=== PATIENT | male | born 1955 | race Caucasian/White ===

== ENCOUNTER 2022-12-31 01:52 | Emergency (ER) | payer OTHER ==
[~2022-12-31] VITALS: Ht 167.6 cm; Wt 70.5 kg
[2022-12-31] MEDS ORDERED: CARB1TAB42 PO (02:20)
[2022-12-31 03:04] LABS: BASOPHILS % (AUTO) 0.9 % (0.0-2.0); EOSINOPHILS % (AUTO) 2.6 % (1.0-6.0); HEMATOCRIT 40.4 % (41-53); HEMOGLOBIN 13.3 g/dL (13.5-17.5); LYMPHOCYTES # (AUTO) 1.6 K/uL (1.0-4.8); LYMPHOCYTES % (AUTO) 16.6 % (22.0-44.0); MEAN CORPUSCULAR HEMOGLOBIN 31.2 pg (26.0-34.0); MEAN CORPUSCULAR HGB CONC 32.9 G/dL (31.0-37.0); MEAN CORPUSCULAR VOLUME 95 fL (80-100); MONOCYTES # (AUTO) 1.1 K/uL (0.1-1.0); MONOCYTES % (AUTO) 11.7 % (2.0-9.0); NEUTROPHILS # (AUTO) 6.5 K/uL (1.8-7.7); NEUTROPHILS % (AUTO) 68.2 % (40.0-70.0); PLATELET COUNT (AUTO) 233 K/uL (150-450); RED BLOOD CELL COUNT(AUTO) 4.26 MIL/uL (4.50-5.90); RED CELL DISTRIBUTION WIDTH 13.2 % (11.5-14.5)
[2022-12-31 03:09] LABS: ANION GAP 8 mmol/L (8-16); CALCIUM, TOTAL 9.2 mg/dL (8.8-10.5); CARBON DIOXIDE 26 mmol/L (22-29); CHLORIDE 105 mmol/L (98-107); CREATININE 1.19 mg/dL (0.60-1.30); GLOMERULAR FILTR. RATE CALC > 60 mL/min (>60); GLUCOSE,RANDOM 135 mg/dL (70-110); POTASSIUM 4.3 mmol/L (3.5-5.1); SODIUM SERUM 139 mmol/L (136-145)
[2022-12-31 03:34] LABS: ALANINE AMINOTRANSFERASE 23 U/L (12-78); ALBUMIN 4.2 g/dL (3.4-5.0); ALKALINE PHOSPHATASE 77 U/L (46-116); ASPARTATE AMINOTRANSFERASE 39 U/L (15-37); BILIRUBIN,TOTAL 0.6 mg/dL (0.1-1.0); CREATINE KINASE, TOTAL ONLY 452 U/L (39-308); TOTAL PROTEIN, SERUM 7.5 g/dL (6.4-8.2)
[2022-12-31 07:15] VITALS: BP 130/73
== END 2022-12-31 07:51 | disposition home or self-care (01) ==
LOC: EMS 02:03
DX: R53.1 Weakness (principal); M60.9 Myositis, unspecified; G20 Parkinson's disease; R45.851 Suicidal ideations; I10 Essential (primary) hypertension; F17.210 Nicotine dependence, cigarettes, uncomplicated
CPT/HCPCS: 99284; 80053; 82550; 84484; 85025; 93005; G0480

== ENCOUNTER 2024-10-03 13:39 | Inpatient (IN) | payer MEDICARE, MEDICAID ==
[~2024-10-03] VITALS: Ht 177.8 cm; Wt 66.0 kg
[~2024-10-03 13:39] MED LIST: CARB1TAB42 PO
[2024-10-03 15:12] LABS: BASOPHILS % (AUTO) 0.7 % (0.0-2.0); EOSINOPHILS % (AUTO) 2.5 % (1.0-6.0); HEMATOCRIT 37.9 % (41-53); HEMOGLOBIN 12.8 g/dL (13.5-17.5); LYMPHOCYTES # (AUTO) 1.3 K/uL (1.0-4.8); LYMPHOCYTES % (AUTO) 15.1 % (22.0-44.0); MEAN CORPUSCULAR HEMOGLOBIN 32.1 pg (26.0-34.0); MEAN CORPUSCULAR HGB CONC 33.7 G/dL (31.0-37.0); MEAN CORPUSCULAR VOLUME 95 fL (80-100); MONOCYTES % (AUTO) 11.8 % (2.0-9.0); NEUTROPHILS # (AUTO) 6.1 K/uL (1.8-7.7); NEUTROPHILS % (AUTO) 69.9 % (40.0-70.0); PLATELET COUNT (AUTO) 231 K/uL (150-450); RED BLOOD CELL COUNT(AUTO) 3.98 MIL/uL (4.50-5.90); RED CELL DISTRIBUTION WIDTH 13.1 % (11.5-14.5); WHITE BLOOD COUNT (AUTO) 8.8 K/uL (4.5-11.0)
[2024-10-03 15:22] LABS: ANION GAP 12 mmol/L (8-16); CALCIUM, TOTAL 9.2 mg/dL (8.8-10.5); CARBON DIOXIDE 22 mmol/L (22-29); CHLORIDE 104 mmol/L (98-107); CREATININE 1.08 mg/dL (0.60-1.30); GLOMERULAR FILTR. RATE CALC > 60 mL/min (>60); GLUCOSE,RANDOM 120 mg/dL (70-110); POTASSIUM 3.6 mmol/L (3.5-5.1); SODIUM SERUM 138 mmol/L (136-145); UREA NITROGEN, BLOOD 31 mg/dL (7-18)
[2024-10-03] MEDS: DiphenhydrAMINE HCL 25 MG CAPSULE PO ONE (15:30)
[2024-10-03] MEDS: HALOPERIDOL 5 MG TABLET PO ONE (15:31)
[2024-10-03] MEDS: LORazepam 1 MG TABLET PO ONE (15:31)
[2024-10-03 15:36] LABS: ALCOHOL, BLOOD (SERUM) < 3 mg/dL (0-10)
[2024-10-03] MEDS: HALOPERIDOL LACTATE 5 MG/ML VIAL IM ONE (15:48)
[2024-10-03] MEDS: LORazepam 2 MG/ML VIAL IM ONE (15:48)
[2024-10-03] MEDS: DiphenhydrAMINE HCL 50 MG/ML VIAL IM ONE (15:48)
[2024-10-03] MEDS ORDERED: QUEtiapine FUMARATE 100 MG TABLET PO PRN (16:00)
[2024-10-03] MEDS ORDERED: ZOLPIDEM TARTRATE 10 MG TABLET PO PRN (16:00)
[2024-10-03] MEDS ORDERED: LORazepam 2 MG TABLET PO PRN (16:00)
[2024-10-03] MEDS ORDERED: ACET650S14 PR (18:47)
[2024-10-03] MEDS ORDERED: ASPI-1450 PO (18:47)
[2024-10-03] MEDS ORDERED: DIVA125T32 PO (18:47)
[2024-10-03 19:30] LABS: COVID AG,FIA SOURCE NASAL SWAB
[2024-10-03 19:52] LABS: SARS-COV2 (COVID) ANTIGEN,FIA Negative (Negative)
[2024-10-03 20:30] VITALS: BP 152/72; PULSE 71; RESP 18; TEMP 98.2; O2SAT 98
[2024-10-04 03:23] VITALS: BP 152/72; PULSE 71; RESP 18; TEMP 98.2; O2SAT 98
[2024-10-04 08:36] LABS: HEMOGLOBIN A1C 5.5 % (3.8-5.6)
[2024-10-04 08:49] LABS: CHOL/HDL RATIO 2.2 (4.2-7.3)
[2024-10-04] MEDS: AmLODIPine BESYLATE 10 MG TABLET PO SCH (08:57)
[2024-10-04] MEDS: LISINOPRIL 20 MG TABLET PO SCH (08:57)
[2024-10-04] MEDS: CARBIDOPA/LEVODOPA 25-100 MG TABLET PO SCH (08:58)
[2024-10-04] MEDS: ASPIRIN 81 MG CHEWABLE TABLET PO SCH (08:58)
[2024-10-04] MEDS: CARBIDOPA/LEVODOPA 50-200 MG ER TABLET PO SCH (09:01)
[2024-10-04 09:13] VITALS: BP 160/83; PULSE 66; RESP 17; TEMP 97.8; O2SAT 100
[2024-10-04 11:06] LABS: APPEARANCE,URINE CLEAR (CLEAR); BILIRUBIN,URINE NEGATIVE (NEGATIVE); COLOR,URINE YELLOW (YELLOW); GLUCOSE, URINE (UA) NEGATIVE (NEGATIVE); KETONES,URINE TRACE mg/dL (NEGATIVE); LEUKOCYTE ESTERASE ,URINE NEGATIVE (NEGATIVE); NITRATE,URINE NEGATIVE (NEGATIVE); OCCULT BLOOD,URINE SMALL (NEGATIVE); PROTEIN,URINE 30-70 mg/dL (NEGATIVE); SPECIFIC GRAVITIY, URINE 1.027 (1.003-1.030); UROBILINOGEN,URINE <=1.0 mg/dL (<=1.0)
[2024-10-04 11:07] LABS: ALCOHOL, URINE DRUG SCREEN NEGATIVE (NEGATIVE); AMPHET/METH SCREEN,URINE NEGATIVE (NEGATIVE); BARBITURATE SCREEN, URINE NEGATIVE (NEGATIVE); BENZODIAZEPINES SCREEN,URINE NEGATIVE (NEGATIVE); CANNABINOID SCREEN,URINE NEGATIVE (NEGATIVE); COCAINE SCREEN,URINE NEGATIVE (NEGATIVE); METHADONE SCREEN, URINE NEGATIVE (NEGATIVE); OPIATE SCREEN,URINE NEGATIVE (NEGATIVE); PHENCYCLIDINE SCREEN,URINE NEGATIVE (NEGATIVE)
[2024-10-04 11:18] LABS: BACTERIA,URINE None Seen /HPF (None Seen); HYALINE CASTS, URINE 0-2 /LPF (None Seen); WBC,URINE 0-2 /HPF (0-5)
[2024-10-04] MEDS ORDERED: AMLO10TA55 PO (12:05)
[2024-10-04] MEDS ORDERED: ACET-2247 PO (12:05)
[2024-10-04] MEDS ORDERED: LISI20TA24 PO (12:05)
[2024-10-04] MEDS: DIVALPROEX SODIUM 125 MG DR TABLET PO SCH (13:07)
[2024-10-04 20:17] VITALS: BP 150/79; PULSE 74; RESP 18; TEMP 97.3; O2SAT 98
[2024-10-05 08:30] VITALS: BP 153/71; PULSE 77; RESP 18; TEMP 97.2; O2SAT 98
[2024-10-05] MEDS: ETHYL ALCOHOL 62% ANTISEPTIC NASAL SANITIZER 0.6 ML AMPUL NASAL SCH (10:17)
[2024-10-05] MEDS: CARBIDOPA/LEVODOPA 50-200 MG ER TABLET PO ONE (18:46)
[2024-10-05 21:58] VITALS: BP 103/60; PULSE 82; RESP 16; TEMP 97.7; O2SAT 98
[2024-10-06 09:00] VITALS: BP 150/86; PULSE 80; RESP 16; TEMP 98; O2SAT 97
[2024-10-06 21:54] VITALS: BP 132/66; PULSE 76; RESP 18; TEMP 97.4; O2SAT 97
[2024-10-07 08:39] VITALS: BP 138/73; PULSE 81; RESP 19; TEMP 98; O2SAT 99
[2024-10-07 21:45] VITALS: BP 118/74; PULSE 71; RESP 18; TEMP 98; O2SAT 99
[2024-10-07] MEDS: GuaiFENesin/D-METHORPHAN/PHENYLEPH 5 ML LIQUID ORAL.SYG PO PRN (23:02)
[2024-10-08] MEDS: LORATADINE 10 MG TABLET PO SCH (09:11)
[2024-10-08 09:30] LABS: APPEARANCE,URINE TURBID (CLEAR); BILIRUBIN,URINE NEGATIVE (NEGATIVE); GLUCOSE, URINE (UA) NEGATIVE (NEGATIVE); KETONES,URINE TRACE mg/dL (NEGATIVE); LEUKOCYTE ESTERASE ,URINE LARGE (NEGATIVE); NITRATE,URINE NEGATIVE (NEGATIVE); OCCULT BLOOD,URINE LARGE (NEGATIVE); PH,URINE 5.5 (5.0-8.0); PROTEIN,URINE 100-200,SEE CONFIRM mg/dL (NEGATIVE); SPECIFIC GRAVITIY, URINE 1.022 (1.003-1.030); UROBILINOGEN,URINE <=1.0 mg/dL (<=1.0)
[2024-10-08 09:59] LABS: COLOR,URINE LIGHT BROWN (YELLOW)
[2024-10-08 10:17] LABS: SULFOSALICYLIC ACID,URINE 2+ (Negative)
[2024-10-08 10:18] LABS: BACTERIA,URINE Many /HPF (None Seen); RBC,URINE >100 /HPF (0-2); WBC,URINE 51-100 /HPF (0-5)
[2024-10-08 11:39] VITALS: BP 148/66; PULSE 73; RESP 18; TEMP 98.8; O2SAT 99
[2024-10-08] MEDS: CEPHALEXIN MONOHYDRATE 500 MG CAPSULE PO SCH (12:43)
[2024-10-08 20:57] VITALS: BP 128/63; PULSE 95; RESP 18; TEMP 98.3; O2SAT 97
[2024-10-09 11:09] VITALS: BP 123/81; PULSE 95; RESP 18; TEMP 98.5; O2SAT 98
[2024-10-09 20:28] VITALS: RESP 18; TEMP 98.8
[2024-10-10 08:54] VITALS: RESP 18
[2024-10-10] MEDS: NITROFURANTOIN MACROCRYSTAL 100 MG CAPSULE PO SCH (11:48)
[2024-10-10] MEDS ORDERED: CARB1TAB36 PO (11:51)
[2024-10-10] MEDS ORDERED: ETHY1MED2 NASAL (11:51)
[2024-10-10] MEDS ORDERED: CEPH-558 PO (11:51)
[2024-10-10] MEDS ORDERED: LORA10TA7 PO (11:52)
[2024-10-10] MEDS ORDERED: NITR-166 PO (11:52)
== END 2024-10-10 16:19 | DRG 885 ==
LOC: EMS 13:53 → 3EI 20:43
PROVIDERS: ADMIT Psychiatry & Neurology Psychiatry; ATTEND Psychiatry & Neurology Psychiatry
PROC: GZHZZZZ Group Psychotherapy (ICD-10-PCS; principal; 2024-10-04)
PROC: GZ51ZZZ Individual Psychotherapy, Behavioral (ICD-10-PCS; 2024-10-04)
DX: F29 Unspecified psychosis not due to a substance or known physiological condition (principal); G20.A1 Parkinson's disease without dyskinesia, without mention of fluctuations; I10 Essential (primary) hypertension; D64.9 Anemia, unspecified; Z20.822 Contact with and (suspected) exposure to COVID-19; F41.9 Anxiety disorder, unspecified; R73.9 Hyperglycemia, unspecified; F02.80 Dementia in other diseases classified elsewhere, unspecified severity, without behavioral disturbance, psychotic disturbance, mood disturbance, and anxiety; Z79.899 Other long term (current) drug therapy; Z87.891 Personal history of nicotine dependence
CPT/HCPCS: 80048; 80061; 80164; 80307; 81001; 81002; 83036; 85025; 87077; 87081; 87086; 87186; 96372; 99291; G0480; J1200; J1630; J2060

== ENCOUNTER 2024-10-16 18:25 | Inpatient (IN) | payer MEDICARE, MEDICAID ==
[~2024-10-16] VITALS: Ht 154.9 cm; Wt 67.3 kg
[~2024-10-16 18:25] MED LIST changes: +AMLO10TA55 PO; +ASPI-1450 PO; +CARB1TAB36 PO; +CEPH-558 PO; +DIVA125T32 PO; +ETHY1MED2 NASAL; +LISI20TA24 PO; +LORA10TA7 PO; +NITR-166 PO
[2024-10-16] MEDS ORDERED: 0.9% SODIUM CHLORIDE 10 ML SYRINGE IVP PRN (18:45)
[2024-10-16] MEDS: LORazepam 2 MG/ML VIAL IM ONE (18:48)
[2024-10-16] MEDS: HALOPERIDOL LACTATE 5 MG/ML VIAL IM ONE (18:49)
[2024-10-16] MEDS: DiphenhydrAMINE HCL 50 MG/ML VIAL IM ONE (18:49)
[2024-10-16] MEDS: SODIUM CHLORIDE 0.9% 1,800 ML IV ONE (19:09)
[2024-10-16 19:23] LABS: COVID AG,FIA SOURCE NASAL SWAB; EOSINOPHILS % (AUTO) 1.8 % (1.0-6.0); HEMOGLOBIN 10.8 g/dL (13.5-17.5); LYMPHOCYTES # (AUTO) 0.9 K/uL (1.0-4.8); LYMPHOCYTES % (AUTO) 14.8 % (22.0-44.0); MEAN CORPUSCULAR HEMOGLOBIN 32.2 pg (26.0-34.0); MEAN CORPUSCULAR HGB CONC 33.7 G/dL (31.0-37.0); MEAN CORPUSCULAR VOLUME 96 fL (80-100); MONOCYTES % (AUTO) 16.9 % (2.0-9.0); NEUTROPHILS % (AUTO) 65.5 % (40.0-70.0); PLATELET COUNT (AUTO) 234 K/uL (150-450); RED BLOOD CELL COUNT(AUTO) 3.35 MIL/uL (4.50-5.90); RED CELL DISTRIBUTION WIDTH 12.7 % (11.5-14.5); WHITE BLOOD COUNT (AUTO) 6.1 K/uL (4.5-11.0)
[2024-10-16 19:26] LABS: APPEARANCE,URINE CLEAR (CLEAR); BILIRUBIN,URINE NEGATIVE (NEGATIVE); COLOR,URINE YELLOW (YELLOW); GLUCOSE, URINE (UA) NEGATIVE (NEGATIVE); LEUKOCYTE ESTERASE ,URINE NEGATIVE (NEGATIVE); NITRATE,URINE NEGATIVE (NEGATIVE); OCCULT BLOOD,URINE MODERATE (NEGATIVE); PH,URINE 5.5 (5.0-8.0); PH,URINE DRUG SCREEN 5.5 (5.0-8.0); PROTEIN,URINE 30-70 mg/dL (NEGATIVE); SPECIFIC GRAVITIY, URINE 1.022 (1.003-1.030); UROBILINOGEN,URINE <=1.0 mg/dL (<=1.0)
[2024-10-16 19:33] LABS: ALCOHOL, URINE DRUG SCREEN NEGATIVE (NEGATIVE); AMPHET/METH SCREEN,URINE NEGATIVE (NEGATIVE); BARBITURATE SCREEN, URINE NEGATIVE (NEGATIVE); BENZODIAZEPINES SCREEN,URINE NEGATIVE (NEGATIVE); CANNABINOID SCREEN,URINE NEGATIVE (NEGATIVE); COCAINE SCREEN,URINE NEGATIVE (NEGATIVE); METHADONE SCREEN, URINE NEGATIVE (NEGATIVE); OPIATE SCREEN,URINE NEGATIVE (NEGATIVE); PHENCYCLIDINE SCREEN,URINE NEGATIVE (NEGATIVE)
[2024-10-16 19:34] LABS: ANION GAP 16 mmol/L (8-16); CALCIUM, TOTAL 8.3 mg/dL (8.8-10.5); CARBON DIOXIDE 20 mmol/L (22-29); CHLORIDE 106 mmol/L (98-107); CREATININE 1.03 mg/dL (0.60-1.30); GLOMERULAR FILTR. RATE CALC > 60 mL/min (>60); GLUCOSE,RANDOM 100 mg/dL (70-110); POTASSIUM 3.8 mmol/L (3.5-5.1); SODIUM SERUM 142 mmol/L (136-145); UREA NITROGEN, BLOOD 27 mg/dL (7-18)
[2024-10-16 19:39] LABS: ALBUMIN 2.9 g/dL (3.4-5.0); BILIRUBIN,DIRECT 0.2 mg/dL (0.00-0.20); BILIRUBIN,TOTAL 0.7 mg/dL (0.1-1.0); TOTAL PROTEIN, SERUM 6.5 g/dL (6.4-8.2)
[2024-10-16 19:40] LABS: B-TYPE NATRIURETIC PEPTIDE 124 pg/mL (0-100)
[2024-10-16 19:41] LABS: ALCOHOL, BLOOD (SERUM) < 3 mg/dL (0-10)
[2024-10-16 19:43] LABS: INFLUENZA TYPE A NEGATIVE FOR TYPE A (NEGATIVE); INFLUENZA TYPE B NEGATIVE FOR TYPE B (NEGATIVE); SARS-COV2 (COVID) ANTIGEN,FIA Negative (Negative); TROPONIN I-HIGH SENSITIVITY 9 ng/L (<76)
[2024-10-16 19:44] LABS: LACTIC ACID 5.7 mmol/L (0.4-2.0)
[2024-10-16 19:53] LABS: BACTERIA,URINE Rare /HPF (None Seen); SQUAMOUS EPITHELIAL CELL,UR Rare /LPF (None Seen); WBC,URINE 0-2 /HPF (0-5)
[2024-10-16] MEDS: ACETAMINOPHEN 1000 MG/ISO-OSM 100 ML IV ONE (19:57)
[2024-10-16] MEDS: CefTRIAXone 1 GM/DEXTROSE 50 ML IV ONE (20:13)
[2024-10-16] MEDS: AZITHROMYCIN 500 MG/NS 250 ML IV ONE (20:49)
[2024-10-16] MEDS ORDERED: ALBUTEROL SULFATE 2.5 MG/0.5 ML NEB SOLUTION NEB PRN (21:30)
[2024-10-16] MEDS ORDERED: ONDANSETRON HCL 4 MG/2 ML VIAL IVP PRN (21:30)
[2024-10-16] MEDS ORDERED: ACETAMINOPHEN 325 MG TABLET PO PRN (21:30)
[2024-10-16] MEDS ORDERED: IPRATROPIUM BROMIDE 0.5 MG/2.5 ML NEB SOLUTION NEB PRN (21:30)
[2024-10-16] MEDS: DEXTROSE 5%-LACTATED RINGERS 1,000 ML IV SCH (21:49)
[2024-10-17] VITALS (7 sets, daily range): BP systolic 132–153; BP diastolic 53–86; PULSE 69–87; RESP 17–20; TEMP 97.4–98; O2SAT 95–98
[2024-10-17] MEDS: HEPARIN SODIUM,PORCINE 5,000 UNITS/ML VIAL SQ SCH (01:09)
[2024-10-17] MEDS: DiphenhydrAMINE HCL 50 MG/ML VIAL IVP ONE (03:22)
[2024-10-17] MEDS: PIPERACILLIN/TAZO 3.375 GM/D5W 50 ML IV SCH (04:10)
[2024-10-17 06:41] LABS: EOSINOPHILS % (AUTO) 6.2 % (1.0-6.0); HEMATOCRIT 38.8 % (41-53); HEMOGLOBIN 12.9 g/dL (13.5-17.5); LYMPHOCYTES # (AUTO) 1.5 K/uL (1.0-4.8); LYMPHOCYTES % (AUTO) 19.2 % (22.0-44.0); MEAN CORPUSCULAR HEMOGLOBIN 31.9 pg (26.0-34.0); MEAN CORPUSCULAR HGB CONC 33.3 G/dL (31.0-37.0); MEAN CORPUSCULAR VOLUME 96 fL (80-100); MONOCYTES # (AUTO) 1.5 K/uL (0.1-1.0); MONOCYTES % (AUTO) 19.4 % (2.0-9.0); NEUTROPHILS # (AUTO) 4.1 K/uL (1.8-7.7); NEUTROPHILS % (AUTO) 54.2 % (40.0-70.0); PLATELET COUNT (AUTO) 256 K/uL (150-450); RED BLOOD CELL COUNT(AUTO) 4.05 MIL/uL (4.50-5.90); WHITE BLOOD COUNT (AUTO) 7.6 K/uL (4.5-11.0)
[2024-10-17 07:04] LABS: ANION GAP 10 mmol/L (8-16); CALCIUM, TOTAL 8.4 mg/dL (8.8-10.5); CARBON DIOXIDE 24 mmol/L (22-29); CHLORIDE 108 mmol/L (98-107); CREATININE 0.61 mg/dL (0.60-1.30); GLOMERULAR FILTR. RATE CALC > 60 mL/min (>60); GLUCOSE,RANDOM 78 mg/dL (70-110); POTASSIUM 4.1 mmol/L (3.5-5.1); SODIUM SERUM 142 mmol/L (136-145); UREA NITROGEN, BLOOD 16 mg/dL (7-18)
[2024-10-17] MEDS: DOCUSATE SODIUM 100 MG CAPSULE PO SCH (09:00)
[2024-10-18] VITALS (7 sets, daily range): BP systolic 123–171; BP diastolic 60–93; PULSE 69–84; RESP 18–20; TEMP 97.7–98; O2SAT 96–99
[2024-10-18] MEDS ORDERED: SODIUM CHLORIDE 0.9% 250 ML IV ONE (11:22)
[2024-10-18] MEDS: HydrALAZINE HCL 20 MG/ML VIAL IVP PRN (23:40)
[2024-10-19 04:14] VITALS: BP 142/78; PULSE 83; RESP 18; TEMP 97.6; O2SAT 99
[2024-10-19 07:54] VITALS: BP 135/63; PULSE 93; RESP 18; TEMP 98; O2SAT 96
[2024-10-19 11:35] VITALS: BP 134/60; PULSE 90; RESP 20; TEMP 97.6; O2SAT 99
[2024-10-19 16:14] VITALS: BP 141/58; PULSE 79; RESP 18; TEMP 98; O2SAT 99
[2024-10-19 19:17] VITALS: BP 127/75; PULSE 82; RESP 18; TEMP 97.8; O2SAT 98
[2024-10-19 23:10] VITALS: BP 122/63; PULSE 80; RESP 18; TEMP 97.7; O2SAT 98
[2024-10-20 03:18] VITALS: BP 142/74; PULSE 84; RESP 19; TEMP 98.3; O2SAT 99
[2024-10-20 07:43] VITALS: BP 137/73; PULSE 84; RESP 19; TEMP 98.3; O2SAT 99
[2024-10-20 11:22] VITALS: BP 144/86; PULSE 83; RESP 19; TEMP 98.3; O2SAT 98
[2024-10-20 15:34] VITALS: BP 125/77; PULSE 74; RESP 19; TEMP 98.2; O2SAT 98
[2024-10-20 18:44] LABS: BASOPHILS % (AUTO) 0.9 % (0.0-2.0); EOSINOPHILS % (AUTO) 5.5 % (1.0-6.0); HEMOGLOBIN 12.5 g/dL (13.5-17.5); LYMPHOCYTES # (AUTO) 1.5 K/uL (1.0-4.8); LYMPHOCYTES % (AUTO) 16.7 % (22.0-44.0); MEAN CORPUSCULAR HEMOGLOBIN 31.4 pg (26.0-34.0); MEAN CORPUSCULAR VOLUME 95 fL (80-100); MONOCYTES # (AUTO) 1.1 K/uL (0.1-1.0); NEUTROPHILS # (AUTO) 5.6 K/uL (1.8-7.7); NEUTROPHILS % (AUTO) 63.9 % (40.0-70.0); PLATELET COUNT (AUTO) 260 K/uL (150-450); RED BLOOD CELL COUNT(AUTO) 3.98 MIL/uL (4.50-5.90); RED CELL DISTRIBUTION WIDTH 13.2 % (11.5-14.5); WHITE BLOOD COUNT (AUTO) 8.7 K/uL (4.5-11.0)
[2024-10-20 18:57] LABS: ANION GAP 8 mmol/L (8-16); CALCIUM, TOTAL 8.1 mg/dL (8.8-10.5); CARBON DIOXIDE 28 mmol/L (22-29); CHLORIDE 104 mmol/L (98-107); CREATININE 0.83 mg/dL (0.60-1.30); GLOMERULAR FILTR. RATE CALC > 60 mL/min (>60); GLUCOSE,RANDOM 118 mg/dL (70-110); POTASSIUM 4.4 mmol/L (3.5-5.1); SODIUM SERUM 140 mmol/L (136-145); UREA NITROGEN, BLOOD 18 mg/dL (7-18)
[2024-10-20 19:01] LABS: ALANINE AMINOTRANSFERASE 42 U/L (12-78); ALBUMIN 2.6 g/dL (3.4-5.0); ALKALINE PHOSPHATASE 46 U/L (46-116); ASPARTATE AMINOTRANSFERASE 39 U/L (15-37); BILIRUBIN,TOTAL 0.3 mg/dL (0.1-1.0); TOTAL PROTEIN, SERUM 6.2 g/dL (6.4-8.2)
[2024-10-20] MEDS: PERMETHRIN 5% 60 GM CREAM TP ONE (21:00)
[2024-10-20 21:07] VITALS: BP 153/81; PULSE 83; RESP 19; O2SAT 97
[2024-10-21 00:18] VITALS: BP 149/66; PULSE 79; RESP 18; TEMP 98.1; O2SAT 98
[2024-10-21 04:33] VITALS: BP 144/74; PULSE 80; RESP 18; TEMP 97.9; O2SAT 99
[2024-10-21 07:21] VITALS: BP 168/90; PULSE 78; RESP 18; TEMP 98; O2SAT 98
[2024-10-21 11:11] VITALS: BP 151/86; PULSE 89; RESP 17; TEMP 98; O2SAT 98
[2024-10-21] MEDS: DIVALPROEX SODIUM 125 MG DR TABLET PO SCH (12:26)
[2024-10-21] MEDS: LISINOPRIL 20 MG TABLET PO SCH (12:26)
[2024-10-21] MEDS: AmLODIPine BESYLATE 10 MG TABLET PO SCH (12:26)
[2024-10-21] MEDS: CARBIDOPA/LEVODOPA 25-100 MG TABLET PO SCH (12:57)
[2024-10-21] MEDS: CARBIDOPA/LEVODOPA 50-200 MG ER TABLET PO SCH (12:57)
[2024-10-21 14:55] VITALS: BP 141/80; PULSE 94; RESP 18; TEMP 98.1; O2SAT 98
[2024-10-21 15:28] LABS: COVID AG,FIA SOURCE NASAL SWAB
[2024-10-21] MEDS ORDERED: CEPHALEXIN MONOHYDRATE 500 MG CAPSULE PO SCH (16:00)
[2024-10-21 16:11] LABS: SARS-COV2 (COVID) ANTIGEN,FIA Negative (Negative)
[2024-10-21 19:39] VITALS: BP 135/61; PULSE 81; RESP 18; TEMP 97.9; O2SAT 97
[2024-10-22] MEDS ORDERED: ASPIRIN 81 MG CHEWABLE TABLET PO SCH (09:00)
[2024-10-22] MEDS ORDERED: LORATADINE 10 MG TABLET PO SCH (09:00)
== END 2024-10-21 21:00 | DRG 871 ==
LOC: EMS 18:25 → EDH 21:17 → 5N 10-17 00:45
PROVIDERS: ADMIT Internal Medicine; ATTEND Internal Medicine
DX: A41.9 Sepsis, unspecified organism (principal); E43 Unspecified severe protein-calorie malnutrition; G93.41 Metabolic encephalopathy; J69.0 Pneumonitis due to inhalation of food and vomit; G20.A1 Parkinson's disease without dyskinesia, without mention of fluctuations; Z68.28 Body mass index [BMI] 28.0-28.9, adult; Z66 Do not resuscitate; Z20.822 Contact with and (suspected) exposure to COVID-19; I10 Essential (primary) hypertension
CPT/HCPCS: 71045; 80048; 80053; 80076; 80307; 81001; 83605; 83735; 83880; 84145; 84484; 85025; 87040; 87081; 87804; 92526; 92610; 93005; 96361; 96365; 96368; 96372; 99285; G0378; G0480; J0131; J0360; J0456; J0696; J1200; J1644; J2543; J7050; 36415-L1; 36415-TC

== ENCOUNTER 2024-10-21 15:23 | Inpatient (IN) | payer MEDICARE, MEDICAID ==
[~2024-10-21] VITALS: Ht 154.9 cm; Wt 63.7 kg
[2024-10-21] MEDS ORDERED: LORazepam 2 MG TABLET PO PRN (20:45)
[2024-10-21] MEDS ORDERED: ZOLPIDEM TARTRATE 10 MG TABLET PO PRN (20:45)
[2024-10-21] MEDS ORDERED: INFLUENZA VIRUS VACCINE TVS (6MO+) 2024-25/PF 45 MCG/0.5 ML SYRINGE IM. ONE (22:45)
[2024-10-21 23:38] VITALS: BP 134/84; PULSE 76; RESP 18; TEMP 97.8; O2SAT 97
[2024-10-22] MEDS ORDERED: CloNIDine HCL 0.1 MG TABLET PO PRN
[2024-10-22] MEDS ORDERED: DOCUSATE SODIUM 100 MG CAPSULE PO PRN
[2024-10-22] MEDS ORDERED: NICOTINE 14 MG/24 HOUR PATCH TD PRN
[2024-10-22] MEDS ORDERED: LOPERAMIDE HCL 2 MG CAPSULE PO PRN
[2024-10-22] MEDS ORDERED: ONDANSETRON 4 MG TABLET PO PRN
[2024-10-22] MEDS ORDERED: MAGNESIUM HYDROXIDE SUSPENSION 30 ML UDCUP PO PRN
[2024-10-22] MEDS ORDERED: PETROLATUM,WHITE 28 GM JELLY TP PRN
[2024-10-22] MEDS ORDERED: GuaiFENesin/D-METHORPHAN [SUGAR-FREE] 200-20MG/10 ML SYRUP UDCUP PO PRN
[2024-10-22] MEDS ORDERED: ALBUTEROL SULFATE HFA 90 MCG/PUFF 8 GM INHALER IH PRN
[2024-10-22] MEDS: DIVALPROEX SODIUM 125 MG DR TABLET PO SCH (08:41)
[2024-10-22] MEDS: ASPIRIN 81 MG CHEWABLE TABLET PO SCH (08:42)
[2024-10-22] MEDS: CARBIDOPA/LEVODOPA 50-200 MG ER TABLET PO SCH (08:42)
[2024-10-22] MEDS: LORATADINE 10 MG TABLET PO SCH (08:42)
[2024-10-22 09:00] VITALS: BP 126/68; PULSE 85; RESP 18; TEMP 97.8; O2SAT 98
[2024-10-22] MEDS: LISINOPRIL 20 MG TABLET PO SCH (09:05)
[2024-10-22] MEDS: AmLODIPine BESYLATE 10 MG TABLET PO SCH (09:05)
[2024-10-22 20:19] VITALS: BP 123/64; PULSE 80; RESP 18; TEMP 97.9; O2SAT 100
[2024-10-23 08:04] LABS: ALANINE AMINOTRANSFERASE 34 U/L (12-78); ALBUMIN 2.7 g/dL (3.4-5.0); ALKALINE PHOSPHATASE 49 U/L (46-116); ANION GAP 7 mmol/L (8-16); ASPARTATE AMINOTRANSFERASE 41 U/L (15-37); BILIRUBIN,TOTAL 0.4 mg/dL (0.1-1.0); CALCIUM, TOTAL 8.7 mg/dL (8.8-10.5); CARBON DIOXIDE 25 mmol/L (22-29); CHLORIDE 105 mmol/L (98-107); CREATININE 0.84 mg/dL (0.60-1.30); GLOMERULAR FILTR. RATE CALC > 60 mL/min (>60); GLUCOSE,RANDOM 93 mg/dL (70-110); POTASSIUM 4.5 mmol/L (3.5-5.1); SODIUM SERUM 137 mmol/L (136-145); THYROID STIMULATING HORMONE 3.03 uIU/mL (0.36-3.74); TOTAL PROTEIN, SERUM 6.7 g/dL (6.4-8.2); UREA NITROGEN, BLOOD 24 mg/dL (7-18)
[2024-10-23 10:55] LABS: BASOPHILS % (AUTO) 0.9 % (0.0-2.0); EOSINOPHILS % (AUTO) 5.3 % (1.0-6.0); HEMATOCRIT 35.6 % (41-53); HEMOGLOBIN 11.6 g/dL (13.5-17.5); LYMPHOCYTES # (AUTO) 1.4 K/uL (1.0-4.8); LYMPHOCYTES % (AUTO) 13.5 % (22.0-44.0); MEAN CORPUSCULAR HEMOGLOBIN 31.4 pg (26.0-34.0); MEAN CORPUSCULAR HGB CONC 32.7 G/dL (31.0-37.0); MEAN CORPUSCULAR VOLUME 96 fL (80-100); MONOCYTES % (AUTO) 10.3 % (2.0-9.0); NEUTROPHILS # (AUTO) 7.1 K/uL (1.8-7.7); PLATELET COUNT (AUTO) 235 K/uL (150-450); RED BLOOD CELL COUNT(AUTO) 3.71 MIL/uL (4.50-5.90); RED CELL DISTRIBUTION WIDTH 13.5 % (11.5-14.5); WHITE BLOOD COUNT (AUTO) 10.2 K/uL (4.5-11.0)
[2024-10-23 11:02] VITALS: BP 115/68; PULSE 76; RESP 18; TEMP 97.4; O2SAT 96
[2024-10-23 11:20] LABS: CHOL/HDL RATIO 2.8 (4.2-7.3)
[2024-10-23 20:31] VITALS: BP 111/58; PULSE 96; RESP 18; TEMP 97.5; O2SAT 99
[2024-10-24 09:37] VITALS: BP 140/77; PULSE 88; RESP 18; TEMP 98; O2SAT 98
[2024-10-24 21:38] VITALS: BP 119/58; PULSE 77; RESP 18; TEMP 98; O2SAT 98
[2024-10-25 08:47] VITALS: BP 150/68; PULSE 78; RESP 18; TEMP 98.8; O2SAT 100
[2024-10-25 10:15] LABS: APPEARANCE,URINE CLEAR (CLEAR); BILIRUBIN,URINE NEGATIVE (NEGATIVE); COLOR,URINE LIGHT YELLOW (YELLOW); GLUCOSE, URINE (UA) NEGATIVE (NEGATIVE); KETONES,URINE NEGATIVE (NEGATIVE); LEUKOCYTE ESTERASE ,URINE NEGATIVE (NEGATIVE); NITRATE,URINE NEGATIVE (NEGATIVE); OCCULT BLOOD,URINE MODERATE (NEGATIVE); PH,URINE 5.5 (5.0-8.0); PH,URINE DRUG SCREEN 5.5 (5.0-8.0); PROTEIN,URINE NEGATIVE (NEGATIVE); SPECIFIC GRAVITIY, URINE 1.008 (1.003-1.030); UROBILINOGEN,URINE <=1.0 mg/dL (<=1.0)
[2024-10-25 10:21] LABS: ALCOHOL, URINE DRUG SCREEN NEGATIVE (NEGATIVE); AMPHET/METH SCREEN,URINE NEGATIVE (NEGATIVE); BARBITURATE SCREEN, URINE NEGATIVE (NEGATIVE); BENZODIAZEPINES SCREEN,URINE NEGATIVE (NEGATIVE); CANNABINOID SCREEN,URINE NEGATIVE (NEGATIVE); COCAINE SCREEN,URINE NEGATIVE (NEGATIVE); METHADONE SCREEN, URINE NEGATIVE (NEGATIVE); OPIATE SCREEN,URINE NEGATIVE (NEGATIVE); PHENCYCLIDINE SCREEN,URINE NEGATIVE (NEGATIVE)
[2024-10-25 10:33] LABS: BACTERIA,URINE None Seen /HPF (None Seen)
[2024-10-25] MEDS: LURASIDONE HCL 40 MG TABLET PO SCH (17:14)
[2024-10-25 20:51] VITALS: RESP 18
[2024-10-26 09:57] VITALS: BP 151/70; PULSE 78; RESP 18; TEMP 98.5; O2SAT 96
[2024-10-26] MEDS: MAG HYDROX/ALUMINUM HYD/SIMETH ES 30 ML SUSPENSION UDCUP PO PRN (15:18)
[2024-10-26 21:04] VITALS: BP 119/68; PULSE 83; RESP 18; TEMP 97.5; O2SAT 96
[2024-10-27 10:02] VITALS: BP 127/84; PULSE 86; RESP 18; TEMP 98.4; O2SAT 99
[2024-10-27 20:30] VITALS: BP 133/58; PULSE 89; RESP 19; TEMP 97.8; O2SAT 100
[2024-10-28] VITALS (12 sets, daily range): BP systolic 128–135; BP diastolic 60–75; PULSE 73–98; RESP 16–20; TEMP 97.5–98.3; O2SAT 98–100
[2024-10-29 09:00] VITALS: BP 122/66; PULSE 89; RESP 18; TEMP 98.4; O2SAT 99
[2024-10-29 22:04] VITALS: BP 159/76; PULSE 80; RESP 20; TEMP 98.6; O2SAT 100; O2SAT 97
[2024-10-30] MEDS: HALOPERIDOL 5 MG TABLET PO PRN (01:20)
[2024-10-30 08:30] VITALS: BP 117/76; PULSE 87; RESP 18; TEMP 97.5; O2SAT 98
[2024-10-30 10:44] VITALS: BP 117/76; PULSE 87; RESP 18; TEMP 97.5; O2SAT 99
[2024-10-30 20:45] VITALS: RESP 16; TEMP 97.7
[2024-10-31 10:43] VITALS: BP 125/70; PULSE 75; RESP 18; TEMP 98; O2SAT 97
[2024-10-31] MEDS: CARBIDOPA/LEVODOPA 25-100 MG TABLET PO SCH (11:10)
[2024-10-31 20:58] VITALS: BP 122/65; PULSE 82; RESP 18; TEMP 98.5; O2SAT 99
[2024-11-01 13:19] VITALS: BP 130/69; PULSE 80; RESP 18; TEMP 97.2; O2SAT 100
[2024-11-01 22:47] VITALS: BP 122/80; PULSE 75; RESP 18; TEMP 97.3; O2SAT 99
[2024-11-02 10:10] VITALS: BP 142/68; PULSE 80; RESP 18; TEMP 97.8; O2SAT 98
[2024-11-02 21:42] VITALS: BP 126/75; PULSE 83; RESP 18; TEMP 98.8; O2SAT 99
[2024-11-03 09:46] VITALS: BP 136/76; PULSE 83; RESP 18; TEMP 97.6; O2SAT 98
[2024-11-03 21:07] VITALS: BP 130/68; PULSE 82; RESP 18; TEMP 96.7; O2SAT 99
[2024-11-04 13:26] VITALS: BP 149/75; PULSE 91; RESP 17; TEMP 97.9; O2SAT 97
[2024-11-04 21:09] VITALS: BP 147/79; PULSE 86; RESP 19; TEMP 97; O2SAT 98
[2024-11-05 01:25] VITALS: BP 138/82; PULSE 82; RESP 19; TEMP 97.6; O2SAT 97
[2024-11-05] MEDS: IBUPROFEN 400 MG TABLET PO PRN (01:31)
[2024-11-05] MEDS: ACETAMINOPHEN 325 MG TABLET PO PRN (02:11)
[2024-11-05 02:31] VITALS: RESP 18
[2024-11-05 08:55] VITALS: BP 162/87; PULSE 94; RESP 17; TEMP 97.5; O2SAT 95
[2024-11-05] MEDS: BACITRACIN ZINC/POLYMYXIN B 14.2 GM OINTMENT TP SCH (21:23)
[2024-11-05 21:24] VITALS: RESP 18
[2024-11-06 08:00] VITALS: BP 135/84; PULSE 80; RESP 18; TEMP 97.3; O2SAT 98
[2024-11-06 21:00] VITALS: BP 117/64; PULSE 78; RESP 18; TEMP 97.3; O2SAT 99
[2024-11-07 09:15] VITALS: BP 145/71; PULSE 95; RESP 17; TEMP 97.6; O2SAT 96
[2024-11-07 20:51] VITALS: RESP 18
[2024-11-08 05:56] VITALS: BP 147/70; PULSE 88; RESP 18; TEMP 97.3; O2SAT 98
[2024-11-08 13:19] VITALS: BP 159/76; PULSE 91; RESP 18; TEMP 97.6; O2SAT 96
[2024-11-08 20:17] VITALS: BP 160/93; PULSE 90; RESP 20; TEMP 97.7; O2SAT 100
[2024-11-09 08:30] VITALS: BP 157/79; PULSE 79; RESP 18; TEMP 97.6; O2SAT 98
[2024-11-09] MEDS: TRIAMCINOLONE 0.5% 15 GM CREAM TP PRN (20:35)
[2024-11-09 20:45] VITALS: BP 140/63; PULSE 69; RESP 17; TEMP 97.2; O2SAT 99
[2024-11-10] MEDS: PERMETHRIN 5% 60 GM CREAM TP ONE (08:18)
[2024-11-10 13:21] VITALS: BP 150/83; PULSE 80; RESP 17; TEMP 98.3; O2SAT 98
[2024-11-10 22:03] VITALS: RESP 18
[2024-11-11 09:00] VITALS: BP 135/70; PULSE 75; RESP 18; TEMP 97.3; O2SAT 97
[2024-11-11 21:38] VITALS: BP 128/65; PULSE 75; RESP 16; TEMP 97.3; O2SAT 100
[2024-11-12 11:47] VITALS: BP 143/68; PULSE 78; RESP 18; TEMP 97.8; O2SAT 99
[2024-11-12] MEDS: CARBIDOPA/LEVODOPA 50-200 MG ER TABLET PO SCH (18:37)
[2024-11-12] MEDS: CARBIDOPA/LEVODOPA 25-100 MG TABLET PO SCH (18:38)
[2024-11-12 20:45] VITALS: RESP 18
[2024-11-13] MEDS: CARBIDOPA/LEVODOPA 25-100 MG TABLET PO SCH (03:39)
[2024-11-13] MEDS: CARBIDOPA/LEVODOPA 50-200 MG ER TABLET PO SCH (03:39)
[2024-11-13 08:28] VITALS: BP 99/86; PULSE 74; RESP 17; TEMP 98; O2SAT 99
[2024-11-13] MEDS: ETHYL ALCOHOL 62% ANTISEPTIC NASAL SANITIZER 0.6 ML AMPUL NASAL SCH (20:56)
[2024-11-13 21:24] VITALS: BP 123/65; RESP 18; TEMP 97.5; O2SAT 99
[2024-11-14 10:27] VITALS: BP 151/67; PULSE 81; RESP 18; TEMP 97.8; O2SAT 98
[2024-11-14 21:59] VITALS: BP 129/64; PULSE 80; RESP 18; TEMP 98.1; O2SAT 99
[2024-11-15 08:00] VITALS: BP 132/62; PULSE 75; RESP 18; TEMP 97.9; O2SAT 99
[2024-11-15 20:38] VITALS: BP 122/66; PULSE 77; RESP 18; TEMP 98.6; O2SAT 99
[2024-11-16 09:43] VITALS: BP 137/69; PULSE 66; RESP 18; TEMP 97.9; O2SAT 100
[2024-11-16 21:47] VITALS: BP 126/65; PULSE 72; RESP 18; TEMP 98.8; O2SAT 98
[2024-11-17 10:59] VITALS: BP 119/61; PULSE 78; RESP 18; TEMP 97.7; O2SAT 97
[2024-11-17 20:46] VITALS: BP 128/69; PULSE 70; RESP 17; TEMP 97.9; O2SAT 98
[2024-11-18 14:27] VITALS: BP 130/60; PULSE 75; RESP 18; TEMP 97.7; O2SAT 95
[2024-11-18] MEDS ORDERED: PERMETHRIN 1% 60 ML LOTION TP ONE (16:30)
[2024-11-18 22:09] VITALS: BP 123/59; PULSE 82; RESP 18; TEMP 98.2; O2SAT 95
[2024-11-19 10:00] VITALS: BP 127/71; PULSE 73; RESP 18; TEMP 98.1; O2SAT 99
[2024-11-19] MEDS ORDERED: LURA40TA2 PO (10:11)
[2024-11-19] MEDS ORDERED: CARB1TAB36 PO (10:52)
[2024-11-19] MEDS ORDERED: CARB-225 PO (10:55)
[2024-11-19] MEDS ORDERED: BACI28.410 TP (10:57)
== END 2024-11-19 13:27 | DRG 885 ==
LOC: 3EX 22:02
PROVIDERS: ADMIT Psychiatry & Neurology Psychiatry; ATTEND Psychiatry & Neurology Psychiatry
DX: F25.9 Schizoaffective disorder, unspecified (principal); F22 Delusional disorders; G20.A1 Parkinson's disease without dyskinesia, without mention of fluctuations; F41.9 Anxiety disorder, unspecified; I10 Essential (primary) hypertension; G47.00 Insomnia, unspecified; K59.00 Constipation, unspecified; B86 Scabies; J31.0 Chronic rhinitis
CPT/HCPCS: 80053; 80061; 80307; 81001; 83036; 84443; 85025; 87081; G0378

== ENCOUNTER 2025-02-02 03:54 | Emergency (ER) | payer MEDICARE, OTHER ==
[~2025-02-02] VITALS: Ht 175.3 cm; Wt 77.3 kg
[~2025-02-02 03:54] MED LIST changes: -CEPH-558 PO; -DIVA125T32 PO; -ETHY1MED2 NASAL; -LISI20TA24 PO; +LURA40TA2 PO; -NITR-166 PO
[2025-02-02] MEDS: CARBIDOPA/LEVODOPA 25-100 MG TABLET PO ONE (04:30)
[2025-02-02 04:54] LABS: PLATELET COUNT (AUTO) 207 K/uL (150-450); RED BLOOD CELL COUNT(AUTO) 3.87 MIL/uL (4.50-5.90); RED CELL DISTRIBUTION WIDTH 13.1 % (11.5-14.5); WHITE BLOOD COUNT (AUTO) 6.0 K/uL (4.5-11.0)
[2025-02-02 05:10] LABS: CALCIUM, TOTAL 8.7 mg/dL (8.8-10.5); CREATININE 0.99 mg/dL (0.60-1.30); GLOMERULAR FILTR. RATE CALC > 60 mL/min (>60); GLUCOSE,RANDOM 112 mg/dL (70-110); SODIUM SERUM 138 mmol/L (136-145); UREA NITROGEN, BLOOD 25 mg/dL (7-18)
[2025-02-02] MEDS: CARBIDOPA/LEVODOPA 50-200 MG ER TABLET PO ONE (05:12)
[2025-02-02 05:18] LABS: TROPONIN I-HIGH SENSITIVITY 6 ng/L (<76)
[2025-02-02 05:19] VITALS: TEMP 97.8
[2025-02-02 05:21] LABS: LACTIC ACID 0.7 mmol/L (0.4-2.0)
[2025-02-02] MEDS ORDERED: CEPH-558 PO ×2 (05:30→06:41)
[2025-02-02] MEDS ORDERED: TRAM50TA5 PO ×2 (05:30→06:41)
[2025-02-02] MEDS: CEPHALEXIN MONOHYDRATE 500 MG CAPSULE PO ONE (05:45)
[2025-02-02 07:21] VITALS: BP 135/69; PULSE 72; RESP 20; O2SAT 97
[2025-02-02] MEDS ORDERED: ASPI-1444 PO (12:50)
[2025-02-02] MEDS ORDERED: ACET-3862 PO (12:50)
[2025-02-02] MEDS ORDERED: CARB1CAP3 PO (12:50)
[2025-02-02] MEDS ORDERED: MIRT-92 PO (12:50)
[2025-02-02] MEDS ORDERED: LURA80TA2 PO (12:51)
== END 2025-02-02 08:09 ==
LOC: EMS 03:54
DX: L03.116 Cellulitis of left lower limb (principal); L03.115 Cellulitis of right lower limb; G89.29 Other chronic pain; M79.671 Pain in right foot; M79.672 Pain in left foot; I10 Essential (primary) hypertension; J44.9 Chronic obstructive pulmonary disease, unspecified; R06.02 Shortness of breath; F41.9 Anxiety disorder, unspecified; Z79.82 Long term (current) use of aspirin
CPT/HCPCS: 80048; 83605; 83880; 84484; 85025; 99284

== ENCOUNTER 2025-05-11 13:50 | Inpatient (IN) | payer MEDICARE, OTHER ==
[~2025-05-11] VITALS: Ht 175.3 cm; Wt 70.0 kg
[~2025-05-11 13:50] MED LIST changes: +ACET-3862 PO; +ASPI-1444 PO; -ASPI-1450 PO; +CARB1CAP3 PO; -CARB1TAB36 PO; -CARB1TAB42 PO; +CEPH-558 PO; -LURA40TA2 PO; +LURA80TA2 PO; +MIRT-92 PO; +TRAM50TA5 PO
[2025-05-11 14:32] LABS: PLATELET COUNT (AUTO) 227 K/uL (150-450); RED BLOOD CELL COUNT(AUTO) 4.11 MIL/uL (4.50-5.90); RED CELL DISTRIBUTION WIDTH 13.1 % (11.5-14.5); WHITE BLOOD COUNT (AUTO) 9.9 K/uL (4.5-11.0)
[2025-05-11 14:40] LABS: CALCIUM, TOTAL 9.0 mg/dL (8.8-10.5); CREATININE 1.74 mg/dL (0.60-1.30); GLOMERULAR FILTR. RATE CALC 39.0 mL/min (>60); GLUCOSE,RANDOM 161.0 mg/dL (70-110); SODIUM SERUM 138.0 mmol/L (136-145); UREA NITROGEN, BLOOD 32.0 mg/dL (7-18)
[2025-05-11 14:49] LABS: COVID AG,FIA SOURCE NASAL SWAB
[2025-05-11] MEDS ORDERED: ALBU10.7 IH (14:50)
[2025-05-11] MEDS ORDERED: CARB1TAB36 PO (14:50)
[2025-05-11] MEDS ORDERED: LISI-893 PO (14:50)
[2025-05-11] MEDS ORDERED: MAGN-169 PO (14:50)
[2025-05-11] MEDS ORDERED: BISA-151 PO (14:50)
[2025-05-11] MEDS ORDERED: SODI133E17 PR (14:50)
[2025-05-11] MEDS ORDERED: MECL-302 PO (14:50)
[2025-05-11] MEDS ORDERED: HYOS-28 PO (14:50)
[2025-05-11] MEDS ORDERED: FAMO20 PO (14:50)
[2025-05-11] MEDS ORDERED: ENOX40SY14 SQ (14:50)
[2025-05-11] MEDS ORDERED: CARB1TAB42 PO (14:50)
[2025-05-11 15:52] LABS: SARS-COV2 (COVID) ANTIGEN,FIA Positive (Negative)
[2025-05-11] MEDS ORDERED: ONDANSETRON HCL 4 MG/2 ML VIAL IVP PRN (19:00)
[2025-05-11] MEDS ORDERED: MAGNESIUM HYDROXIDE SUSPENSION 30 ML UDCUP PO PRN (19:00)
[2025-05-11 20:57] VITALS: BP 137/65; PULSE 96; RESP 19; TEMP 98.2; O2SAT 99
[2025-05-11] MEDS: SODIUM CHLORIDE 0.9% 1,000 ML IV ONE (20:59)
[2025-05-11] MEDS: DOCUSATE SODIUM 100 MG CAPSULE PO SCH (21:00)
[2025-05-11] MEDS: CARBIDOPA/LEVODOPA 25-100 MG TABLET PO SCH (22:10)
[2025-05-12] MEDS: HEPARIN SODIUM,PORCINE 5,000 UNITS/ML VIAL SQ SCH
[2025-05-12 03:25] VITALS: BP 138/64; PULSE 97; RESP 18; TEMP 98.1; O2SAT 95
[2025-05-12 05:21] VITALS: BP 142/76; PULSE 86; RESP 19; TEMP 97.9; O2SAT 98
[2025-05-12 07:20] VITALS: BP 136/80; PULSE 87; RESP 20; TEMP 98.1; O2SAT 98
[2025-05-12] MEDS: FAMOTIDINE 20 MG TABLET PO SCH (09:00)
[2025-05-12 13:03] LABS: CALCIUM, TOTAL 8.6 mg/dL (8.8-10.5); CREATININE 0.73 mg/dL (0.60-1.30); GLOMERULAR FILTR. RATE CALC > 60 mL/min (>60); GLUCOSE,RANDOM 111 mg/dL (70-110); SODIUM SERUM 136 mmol/L (136-145); UREA NITROGEN, BLOOD 30 mg/dL (7-18)
[2025-05-12 16:23] VITALS: BP 107/63; PULSE 79; RESP 20; TEMP 98.8; O2SAT 97
[2025-05-12 19:41] VITALS: BP 115/57; PULSE 63; RESP 18; TEMP 98.4; O2SAT 99
[2025-05-13 04:27] VITALS: BP 136/60; PULSE 67; RESP 18; TEMP 97.7; O2SAT 99
[2025-05-13 08:00] VITALS: BP 133/70; PULSE 67; RESP 19; TEMP 97.3; O2SAT 99
[2025-05-13 16:38] VITALS: BP 111/61; PULSE 70; RESP 16; TEMP 97.3; O2SAT 98
[2025-05-13 20:10] VITALS: BP 131/67; PULSE 65; RESP 18; TEMP 97.7; O2SAT 99
[2025-05-14 03:51] LABS: APPEARANCE,URINE CLEAR (CLEAR); GLUCOSE, URINE (UA) NEGATIVE (NEGATIVE); LEUKOCYTE ESTERASE ,URINE NEGATIVE (NEGATIVE); NITRATE,URINE NEGATIVE (NEGATIVE); OCCULT BLOOD,URINE NEGATIVE (NEGATIVE); PH,URINE DRUG SCREEN 6.0 (5.0-8.0); SPECIFIC GRAVITIY, URINE 1.024 (1.003-1.030)
[2025-05-14 03:57] LABS: AMPHET/METH SCREEN,URINE NEGATIVE (NEGATIVE); BARBITURATE SCREEN, URINE NEGATIVE (NEGATIVE); CANNABINOID SCREEN,URINE NEGATIVE (NEGATIVE); COCAINE SCREEN,URINE NEGATIVE (NEGATIVE); METHADONE SCREEN, URINE NEGATIVE (NEGATIVE)
[2025-05-14 03:58] LABS: ALCOHOL, URINE DRUG SCREEN NEGATIVE (NEGATIVE)
[2025-05-14 05:31] VITALS: BP 160/71; PULSE 62; RESP 20; TEMP 97.5; O2SAT 96
[2025-05-14 08:00] VITALS: BP_SYST 133; BP_SYST 135; BP_DIAS 70; BP_DIAS 97; PULSE 64; RESP 19; TEMP 97.5; O2SAT 100; O2SAT 97
[2025-05-14] MEDS: CARBIDOPA/LEVODOPA 25-100 MG TABLET PO SCH (12:40)
[2025-05-14 16:00] VITALS: BP 141/76; PULSE 66; RESP 20; TEMP 97.7; O2SAT 97
[2025-05-14 19:30] VITALS: BP 140/64; PULSE 59; RESP 18; TEMP 97.8; O2SAT 99
[2025-05-15 03:48] VITALS: BP 141/62; PULSE 66; RESP 18; TEMP 98.1; O2SAT 99
[2025-05-15 08:16] VITALS: BP 144/87; PULSE 66; RESP 18; TEMP 97.8; O2SAT 99
[2025-05-15 12:14] LABS: COVID AG,FIA SOURCE NASAL SWAB
[2025-05-15 13:14] LABS: SARS-COV2 (COVID) ANTIGEN,FIA Positive (Negative)
[2025-05-15] MEDS ORDERED: DOCU-385 PO (15:23)
[2025-05-15 16:20] VITALS: BP 150/80; PULSE 63; RESP 17; TEMP 98.4; O2SAT 99
[2025-05-15 19:32] VITALS: BP 145/90; PULSE 69; RESP 18; TEMP 97.5; O2SAT 97
[2025-05-16 04:21] VITALS: BP 126/98; PULSE 70; RESP 18; TEMP 97.3; O2SAT 97
[2025-05-16 09:06] VITALS: BP 129/73; PULSE 72; RESP 18; TEMP 97.7; O2SAT 98
[2025-05-16 16:07] VITALS: BP 151/82; PULSE 62; RESP 18; TEMP 98; O2SAT 98
== END 2025-05-16 17:45 | DRG 178 ==
LOC: EMS 13:50 → EDH 18:49 → 6N 19:57
PROVIDERS: ADMIT Internal Medicine; ATTEND Internal Medicine
PROC: GZ56ZZZ Individual Psychotherapy, Supportive (ICD-10-PCS; principal; 2025-05-12)
DX: U07.1 COVID-19 (principal); F20.0 Paranoid schizophrenia; N17.9 Acute kidney failure, unspecified; G20.A1 Parkinson's disease without dyskinesia, without mention of fluctuations; I10 Essential (primary) hypertension; J44.9 Chronic obstructive pulmonary disease, unspecified; F41.9 Anxiety disorder, unspecified; F02.80 Dementia in other diseases classified elsewhere, unspecified severity, without behavioral disturbance, psychotic disturbance, mood disturbance, and anxiety; F32.A Depression, unspecified; G47.00 Insomnia, unspecified; K21.9 Gastro-esophageal reflux disease without esophagitis
CPT/HCPCS: 80048; 80307; 81003; 85025; 87081; 97163; 97530; 99285; G0480; J1644